=== PATIENT | male | born 1985 | race Caucasian/White ===

== ENCOUNTER 2022-03-24 11:03 | Emergency (ER) | payer OTHER, SELFPAY ==
[2022-03-24 11:22] VITALS: BP 139/85; PULSE 76; RESP 18; TEMP 36.8; O2SAT 99
--- NOTE | 2022-03-24 11:48 | ED.GENADUL_ITS ---
Discharge Plan Disposition Patient Disposition: HOME Condition: Stable Discharge Details Clinical Impression: Lumbar back pain Primary Care Provider: None,None ED Provider: Alejandra Ly Home Meds and New Rx's Prescriptions: New dexamethasone [Decadron] 4 mg tablet 4 mg PO DAILY Qty: 5 0RF cyclobenzaprine 10 mg tablet 10 mg PO TID PRNQty: 10 0RF oxycodone 5 mg capsule 5 mg PO DAILY PRN PRNQty: 5 0RF Discharge Instructions Instructions: Low Back Strain (ED) Additional Instructions: Refrain from lifting more than 10 pounds Light stretching Warm compresses Take Decadron for the next 5 days You may take Flexeril for musculoskeletal pain You have a prescription for several tablets of oxycodone, this is for pain uncontrolled with Tylenol and Decadron only This medication is addictive and he should use caution while taking it Please return with strength or sensation change, changes in bowel or bladder, fever or chills, or with any new or worsening complaints Stand Alone Forms: Work Release Discharge Data Discharge Date/Time-TO BE ENTERED AT DEPARTURE: 03/24/22 12:00 HPI General Date/Time Provider Initiated Documentation: 03/24/22 11:18 . HPI Narrative: This 36-year-old male presents with back pain, lumbar with radiation into his right upper thigh. He denies any known trauma. He states he was discharged from the [employer] in November and is wondering if years of heavy lifting and activity have caused some damage. He does not currently lift any heavy objects. He had pain intermittently over the course of the week but states that it has worsened in the past 24 hours. Denies any trauma. Denies any additional radiation. Denies changes in bowel or bladder prescription writing. Denies any recent radiation down the legs. Denies any fever or chills or history of illicit drug use. Denies any history of immunocompromise state. Related Data Home Medications Medication Instructions Recorded Confirmed cyclobenzaprine 10 mg tablet 10 mg PO TID PRN #10 tabs 03/24/22 dexamethasone 4 mg tablet 4 mg PO DAILY #5 tabs 03/24/22 (Decadron) oxycodone 5 mg capsule 5 mg PO DAILY PRN PRN #5 caps 03/24/22 Previous Rx's Medication Instructions Recorded cyclobenzaprine 10 mg tablet 10 mg PO TID PRN #10 tabs 03/24/22 dexamethasone 4 mg tablet 4 mg PO DAILY #5 tabs 03/24/22 (Decadron) oxycodone 5 mg capsule 5 mg PO DAILY PRN PRN #5 caps 03/24/22 Allergies Allergy/AdvReac Type Severity Reaction Status Date / Time No Known Allergies Allergy Unverified 03/24/22 11:27 General Stated Complaint: Nk/Back Pain FARIBA: 4 Review of Systems All systems reviewed & are unremarkable except as noted in HPI and below PFSH All Active Problems (Updated 03/24/22 @ 11:54 by SHAISTA [place]) Lumbar back pain (Acute) Social History Smoking/Tobacco Use Status: Current every day Tobacco Type: cigarettes Smoking risk assessment performed?: Yes Alcohol Intake: current Alcohol Intake frequency: a few times a month Alcohol type: beer Drug use: Daily Substance use type: marijuana Do you feel safe at home: Yes Do you feel safe in your relationship?: Yes Exam Const General: cooperative, comfortable and no acute distress Resp Effort & Inspection: normal respiratory effort Cardio Rate: regular rate Other: distal pulses intact GI Inspection: normal to inspection Other: no cva tenderness or midline tenderness Back/Spine/Pelvis Other: tenderness to lumbar spine paraspinal muscles Skin General skin exam: no rashes or lesions noted Neuro General: patient alert and patient oriented x3 Cranial Nerves: CN's II-XI intact bilaterally Cognition: normal cognition Speech: speech normal Motor: strength 5/5 throughout Sensory Exam: no sensory deficits noted Other: -slr bilaterally, babinski neg Extrem Other: distal pulses intact Course Vital Signs Vital signs: Vital Signs Temperature 36.8 C 03/24/22 11:22 Pulse 76 03/24/22 11:22 Respiratory Rate 18 03/24/22 11:22 Blood Pressure 139/85 03/24/22 11:22 Pulse Oximetry 99 03/24/22 11:22 Temperature 36.8 C 03/24/22 11:22 Temperature Source Temporal Artery Scan 03/24/22 11:22 Pulse 76 03/24/22 11:22 Respiratory Rate 18 03/24/22 11:22 Respiratory Effort Non-Labored 03/24/22 11:25 Blood Pressure 139/85 03/24/22 11:22 Blood Pressure Position Sitting 03/24/22 11:22 Pulse Oximetry 99 03/24/22 11:22 Oxygen Delivery Method Room Air 03/24/22 11:22 Oxygen Flow Rate 0 03/24/22 11:22 Pain Level 9 03/24/22 11:28 PAWSS Have you Been Recently Intoxicated or Drunk Within the Last 30 days?: No Have you Ever Experienced Previous Episodes of Alcohol Withdrawal?: No Have you ever Experienced Withdrawal Seizures?: No Have you ever Experienced Delirium Tremens(DT)s?: No Have you ever undergone Alcohol Rehabilitation Treatment (i.e, inpt ot outpatient treatment programs)?: No Have you ever Experienced Blackouts?: No Have you ever Combined Alcohol with other Downers within the last 90 days?: No Have you ever Combined Alcohol with any other Substance of Abuse during the last 90 days?: No Positive Blood Alcohol level on Presentation? [PCS.BAL]: No Evidence of Increased Autonomic Activity (i.e. HR>120, tremor, sweating, agitation, nausea)?: No Result: 0
--- NOTE | 2022-03-24 11:53 | NUR.NOTE ---
Referral for PCP to establish care for f/u routine given to Care Management-Nursing Note:
--- NOTE | 2022-03-26 16:10 | PDOC.ERCMACT ---
- If Service Date Differs Date of service: 03/26/22 Time of Service: 16:10 Care Management Activity Note Aldair is seen in the ED for neck and back pain. At the request of ED provider, FLAQUITA coordinates a referral to STEVO Ball, of [facility], on-call provider, to assist Aldair in obtaining a follow up appointment and in establishing care with a PCP. He has for insurance.
== END 2022-03-24 12:00 | disposition home or self-care (01) ==
PROVIDERS: Emergency Provider Physician Assistant
DX: M54.50 Low back pain, unspecified (principal); M79.651 Pain in right thigh; F17.210 Nicotine dependence, cigarettes, uncomplicated
CPT/HCPCS: 99283; 99284

== ENCOUNTER → 2024-02-02 02:04 | Outpatient (CLI) | payer OTHER, SELFPAY ==
--- NOTE | 2024-02-02 | DI.RAD_ITS ---
Exam(s) XR LUMBAR SPINE COMP W FLEX/EX EXAM: XR LUMBAR SPINE COMP W FLEX/EX CLINICAL HISTORY: CHRONIC LOW BACK PAIN,,M54.50,[id number]. TECHNIQUE: 2D digital imaging was performed. Seven views. Flexion and extension lateral views were performed in addition to the neutral lateral view. COMPARISON: No exams were available for comparison FINDINGS: BONES: No fracture or destructive lesion. Vertebral body heights are maintained. No facet hypertroph y identified. No spondylolysis. SI joints are unremarkable. DISKS: Intervertebral disc spaces are maintained. ALIGNMENT: Lumbar spinal alignment is within normal limits. No subluxation with flexion or extensio n. SOFT TISSUE: Normal. IMPRESSION: Unremarkable radiographs of the lumbar spine. DATA REPOSITORY: RADIATION DOSE DELIVERED:
--- NOTE | 2024-02-02 | DI.RAD_ITS ---
Exam(s) XR HAND RT COMPLETE XR HAND LT COMPLETE EXAM: XR HAND RT COMPLETE CLINICAL HISTORY: BILAT HAND PAIN, M25.549, [id number]. TECHNIQUE: 2D digital imaging was performed. Three views of both hands. COMPARISON: CR XR HAND LT COMPLETE from 02/02/2024 FINDINGS: BONES: The bones are normally mineralized. No acute fracture is present. No bony destructive lesion is seen. JOINTS: No dislocation present. No significant degenerative changes. SOFT TISSUE: Normal. IMPRESSION: Unremarkable radiographs of the bilateral hands. DATA REPOSITORY: RADIATION DOSE DELIVERED:
--- NOTE | 2024-02-02 | DI.RAD_ITS ---
Exam(s) XR HAND RT COMPLETE XR HAND LT COMPLETE EXAM: XR HAND RT COMPLETE CLINICAL HISTORY: BILAT HAND PAIN, M25.549, [id number]. TECHNIQUE: 2D digital imaging was performed. Three views of both hands. COMPARISON: CR XR HAND LT COMPLETE from 02/02/2024 FINDINGS: BONES: The bones are normally mineralized. No acute fracture is present. No bony destructive lesion is seen. JOINTS: No dislocation present. No significant degenerative changes. SOFT TISSUE: Normal. IMPRESSION: Unremarkable radiographs of the bilateral hands. DATA REPOSITORY: RADIATION DOSE DELIVERED:
== END ==
PROVIDERS: Visit Provider Physician Assistant
DX: M54.50 Low back pain, unspecified (principal); M25.541 Pain in joints of right hand; M25.542 Pain in joints of left hand
CPT/HCPCS: 72114; 73130